=== PATIENT | male | born 1980 | race Caucasian/White ===

== ENCOUNTER → 2016-07-09 | Outpatient (CLI) | payer OTHER ==
--- NOTE | 2016-07-09 09:43 | CT ---
Study: CT of the Head. Indication: DIZZINESS Technique: Axial CT images of the head were acquired without intravenous contrast. Comparison: None. Findings: No CT evidence of acute ischemia, acute hemorrhage, mass, mass effect, midline shift, or extra-axial fluid collection. Ventricles are normal in configuration without hydrocephalus. Brain parenchyma demonstrates a normal appearance for patient age. Paranasal sinuses are adequately aerated. Mastoid air cells are adequately aerated. Osseous structures and soft tissues are unremarkable. Impression: 1. No CT evidence of acute intracranial abnormality. Electronically signed by: Cam Ye MD 07/09/2016 09:41
== END ==
LOC: CT 07:56
PROVIDERS: ATTEND Family Medicine
DX: R42 Dizziness and giddiness (principal)

== ENCOUNTER → 2016-08-19 | Outpatient (CLI) | payer OTHER | LOC: SL 20:30 | PROVIDERS: ATTEND Family Medicine | DX: G47.33 Obstructive sleep apnea (adult) (pediatric) (principal) ==

== ENCOUNTER → 2016-10-13 | Outpatient (CLI) | payer OTHER | LOC: SL 20:24 | PROVIDERS: ATTEND Family Medicine | DX: G47.33 Obstructive sleep apnea (adult) (pediatric) (principal) ==

== ENCOUNTER → 2017-02-10 | Outpatient (CLI) | payer OTHER | END | disposition home or self-care (01) | LOC: GMAH 10:35 | PROVIDERS: ATTEND Family Medicine | DX: E03.9 Hypothyroidism, unspecified (principal) ==

== ENCOUNTER → 2017-05-12 | Outpatient (CLI) | payer OTHER | END | disposition home or self-care (01) | LOC: GMAH 10:50 | PROVIDERS: ATTEND Family Medicine | DX: E03.9 Hypothyroidism, unspecified (principal) ==

== ENCOUNTER → 2017-06-23 | Outpatient (CLI) | payer OTHER | END | disposition home or self-care (01) | LOC: GMAH 16:32 | PROVIDERS: ATTEND Family Medicine | DX: E29.9 Testicular dysfunction, unspecified (principal); E03.9 Hypothyroidism, unspecified ==

== ENCOUNTER → 2017-08-19 | Outpatient (CLI) | payer OTHER | LOC: GMAH 15:22 | PROVIDERS: ATTEND Family Medicine | DX: E03.9 Hypothyroidism, unspecified (principal) ==

== ENCOUNTER → 2018-01-20 | Outpatient (CLI) | payer OTHER ==
--- NOTE | 2018-01-20 16:23 | RAD ---
EXAM DESCRIPTION: Shoulder,Left 2 or More Views CLINICAL HISTORY: PAIN COMPARISON: None Available. TECHNIQUE: Four views of the left shoulder. FINDINGS: There is adequate internal and external rotation. Transscapular Y view appears normally aligned as does the transaxillary view There is no fracture or dislocation. There are no significant degenerative changes observed. AC joint appears intact. No focal bone lesion. IMPRESSION: Negative for fracture or dislocation. Electronically signed by: Brandon Horton MD 01/20/2018 4:21 PM CDT
== END ==
LOC: RAD 07:53
PROVIDERS: ATTEND Orthopaedic Surgery
DX: M25.512 Pain in left shoulder (principal)

== ENCOUNTER → 2018-03-04 | Outpatient (CLI) | payer OTHER ==
--- NOTE | 2018-03-04 09:17 | MRI ---
MRI left shoulder without contrast INDICATION: Shoulder pain rotator cuff tear TECHNIQUE: Noncontrast MR imaging left shoulder FINDINGS: There is a paralabral cyst along the posterior labrum with ill-defined tear extending throughout. The para labral cyst measures 11 x 6 mm. There is also evidence of tear extension throughout the anterior labrum. There is diffuse involvement of the superior labrum with fraying and mild volume loss. No complete detachment. Mild AC joint osteoarthrosis. Moderate subacromial and subdeltoid bursitis. There is edema at the greater tuberosity likely related to insertional partial rotator cuff tear. There is tendinosis with undersurface fraying and interstitial partial tear chronic supraspinatus approaching 50% partial-thickness. There is infraspinatus tendinosis without rupture or retraction Subscapularis is intact. Long head bicep is intact. No muscle atrophy. IMPRESSION: Chronic tendinosis with interstitial tear distal supraspinatus with reactive edema at the greater tuberosity without retraction Diffuse glenoid labral tear nearly circumferential with para labral cyst posteriorly Mild AC joint osteoarthrosis Moderate subacromial and subdeltoid bursitis Electronically signed by: Vazquez Yip MD 03/04/2018 9:16 AM CDT
== END ==
LOC: MRI 07:00
PROVIDERS: ATTEND Orthopaedic Surgery
DX: M75.102 Unspecified rotator cuff tear or rupture of left shoulder, not specified as traumatic (principal); M19.012 Primary osteoarthritis, left shoulder; M75.52 Bursitis of left shoulder

== ENCOUNTER → 2018-04-05 | Outpatient (CLI) | payer OTHER | LOC: GMAH 15:00 | PROVIDERS: ATTEND Family Medicine | DX: E29.9 Testicular dysfunction, unspecified (principal); E03.9 Hypothyroidism, unspecified ==

== ENCOUNTER → 2019-12-22 | Outpatient (CLI) | payer OTHER | LOC: LAB.O 08:57 | PROVIDERS: ATTEND Registered Nurse General Practice | DX: E34.9 Endocrine disorder, unspecified (principal) ==

== ENCOUNTER → 2020-06-26 | Outpatient (CLI) | payer OTHER | LOC: LAB.NP 08:12 | PROVIDERS: ATTEND Nurse Practitioner Family | DX: B71.9 Cestode infection, unspecified (principal) ==

== ENCOUNTER → 2020-08-01 | Outpatient (CLI) | payer OTHER | LOC: YCFC.O 15:33 | PROVIDERS: ATTEND Nurse Practitioner Family | DX: Z20.828 Contact with and (suspected) exposure to other viral communicable diseases (principal) ==

== ENCOUNTER → 2020-08-03 | Outpatient (CLI) | payer OTHER | LOC: YCFC.O 14:37 | PROVIDERS: ATTEND Nurse Practitioner Family | DX: E53.8 Deficiency of other specified B group vitamins (principal); R50.9 Fever, unspecified; M79.10 Myalgia, unspecified site ==

== ENCOUNTER 2020-08-06 09:01 | Emergency (ER) | payer OTHER ==
--- NOTE | 2020-08-06 09:03 | ED.PDOC ---
History of Present Illness - General Stated Complaint: Febrile illness Time Seen by Provider: 08/06/20 09:03 Additional Information: Given prescription for Zithromax 8 days ago, course has been completed now. - History of Present Illness Initial Comments: Patient complains of fever chills and malaise for the last 10 days. He has had a temperature of up to 103 with temperature today 101.7. He complains of prominent chills and malaise. Patient has also had a cough for the last 4 days which is nonproductive. He also complains of shortness of breath. He reports nausea without vomiting. He has had diarrhea 10-12 times In the last 24 hours which is nonbloody. He has had a headache in the occipital area for the last 10 days. He denies syncope. Patient denies weakness or numbness. He complains of vertigo, Which is particularly worsened by some positions.Patient was seen 8 days ago [facility] with a negative Covid test. He was seen in the clinic 5 days ago with a negative Covid test. He was seen here in the emergency room 3 days ago with a negative Covid test. At that time he was found to have low potassium and was given a potassium supplement. Allergies/Adverse Reactions: Allergies NO KNOWN ALLERGY Allergy (Verified 08/06/20 09:10) Home Medications: Ambulatory Orders Amoxicillin & Pot Clavulanate [Augmentin Tab] 875 mg PO BID 7 Days #14 tab 08/06/20 Meclizine HCl [Meclizine 25] 25 mg PO TID PRN 10 Days #30 tab 08/06/20 Review of Systems - Review of Systems Constitutional: States: see HPI EENTM: States: no symptoms reported Respiratory: States: cough, short of breath Genitourinary: States: no symptoms reported Musculoskeletal: States: muscle pain Skin: States: no symptoms reported Neurological: States: see HPI Endocrine: States: no symptoms reported Hematologic/Lymphatic: States: no symptoms reported All other Systems: Reviewed and Negative Past Medical History (General) - Patient Medical History Hx Hypertension: Yes Hx Other - free text: Elevated triglycerides, low testosterone, Fawn's thyroiditis Family Medical History - Family History Mother Family History: Unknown Physical Exam - Physical Exam General Appearance: Alert, Comfortable Eye Exam: bilateral normal Ears, Nose, Throat: hearing grossly normal, normal ENT inspection, normal pharynx, other - Tympanic membranes normal bilaterally Neck: non-tender, full range of motion, supple Respiratory: lungs clear Cardiovascular/Chest: normal peripheral pulses Gastrointestinal/Abdominal: normal bowel sounds, non tender, soft Back Exam: normal inspection, no CVA tenderness Extremity: normal range of motion, non-tender 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 No past pointing. Skin Exam: normal color Lymphatic: no adenopathy Progress - Progress Progress: 08/06/20 11:07 Medical decision making: Previously healthy 40-year-old male with 10-day history of fever chills malaise cough diarrhea and other neurological symptoms suggestive of a COVID-19 infection. Patient's previously been treated with Zithromax without relief of symptoms. Due to prolonged symptoms patient will be placed on a prescription of amoxicillin in case there is a secondary infection although this is admittedly not very likely. Patient does not have any dyspnea or hypoxemia to require admission at this time. He is not a high risk patient who would need monoclonal antibody treatment. He is suitable for outpatient treatment follow-up if he should have worsening symptoms. 08/06/20 11:09 Patient also has subjective complaints of vertigo But does not have any objective findings such as ataxia or past-pointing. He will be treated symptom atically with meclizine as needed. - Results/Orders Results/Orders: Covid 19 rapid test positive. Influenza a and B test negative. XAM DESCRIPTION: Chest,1 View CLINICAL HISTORY: 40 years Male, Cough and fever COMPARISON: None. TECHNIQUE: AP portable chest. FINDINGS: Heart size is normal with normal pulmonary vascularity. Bilateral pulmonary infiltrates are seen. Infiltrate in the right perihilar and right lower lobe regions. Infiltrate in the left upper lobe and left pericardiac regions. No pulmonary mass or worrisome nodule. No pneumothorax or pleural effusion. Bones are unremarkable. IMPRESSION: Bilateral pulmonary infiltrates consistent with pneumonia. 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 Laboratory Results - last 24 hr 08/06/20 08/06/20 09:20 09:20 WBC 4.1 L RBC 4.95 Hgb 15.9 Hct 46.6 MCV 94.0 MCH 32.1 H MCHC 34.1 RDW 13.8 Plt Count 155 MPV 8.6 Absolute Neuts (auto) 3.00 Absolute Lymphs (auto) 0.60 L Absolute Monos (auto) 0.40 Absolute Eos (auto) 0.00 Absolute Basos (auto) 0.00 Neutrophils % 73.5 Lymphocytes % 15.5 L Monocytes % 9.5 H Eosinophils % 1.0 Basophils % 0.5 Sodium 136 Potassium 3.6 Chloride 99 L Carbon Dioxide 28 Anion Gap 12.6 BUN 13 Creatinine 1.58 H BUN/Creatinine Ratio 8.2 L Random Glucose 93 Serum Osmolality 271.8 L Calcium 8.7 Total Bilirubin 0.8 AST 41 ALT 43 Alkaline Phosphatase 34 L Serum Total Protein 7.4 Albumin 4.3 Globulin 3.1 Albumin/Globulin Ratio 1.4 Vital Signs - 24 hr 08/06/20 08/06/20 08/06/20 09:05 09:22 10:01 Temperature 97.2 F L 98.4 F Pulse Rate [ 79 79 81 brachial] Respiratory 18 18 18 Rate Blood Pressure 162/81 131/88 [Left Arm] O2 Sat by Pulse 96 98 Oximetry 08/06/20 10:25 Temperature 99.4 F Pulse Rate [ 74 brachial] Respiratory 18 Rate Blood Pressure 131/88 [Left Arm] O2 Sat by Pulse 96 Oximetry Departure - Departure Clinical Impression: COVID-19, Pneumonia, Vertigo Disposition: Discharge to Home or Self Care Condition: Excellent Departure Forms: ED Discharge - Pt. Copy, Patient Portal Self Enrollment Instructions: Vertigo (a Type of Dizziness) (DC), Pneumonia, Adult (DC), Coronavirus Disease 2019 (COVID-19) (DC) Diet: regular diet Referrals: VINCENT ESPINO NP [Primary Care Provider] - 1-2 Weeks Prescriptions: Amoxicillin & Pot Clavulanate [Augmentin Tab] 875 mg PO BID 7 Days #14 tab Meclizine HCl [Meclizine 25] 25 mg PO TID PRN 10 Days #30 tab PRN Reason: Dizziness Home Medications: Ambulatory Orders Amoxicillin & Pot Clavulanate [Augmentin Tab] 875 mg PO BID 7 Days #14 tab 08/06/20 Meclizine HCl [Meclizine 25] 25 mg PO TID PRN 10 Days #30 tab 08/06/20 Additional Instructions: You have COVID-19 with pneumonia. You should remain home under isolation until you are free of symptoms for at least 4 days. Return to the emergency room if you are having worsening shortness of breath And feel like you cannot breathe.
[2020-08-06] MEDS ORDERED: MECLIZINE HCL 12.5 MG TAB PO ONE (09:25)
[2020-08-06] MEDS ORDERED: MECLIZINE HCL 12.5 MG TAB ONE (09:37)
--- NOTE | 2020-08-06 09:41 | RAD ---
EXAM DESCRIPTION: Chest,1 View CLINICAL HISTORY: 40 years Male, Cough and fever COMPARISON: None. TECHNIQUE: AP portable chest. FINDINGS: Heart size is normal with normal pulmonary vascularity. Bilateral pulmonary infiltrates are seen. Infiltrate in the right perihilar and right lower lobe regions. Infiltrate in the left upper lobe and left pericardiac regions. No pulmonary mass or worrisome nodule. No pneumothorax or pleural effusion. Bones are unremarkable. IMPRESSION: Bilateral pulmonary infiltrates consistent with pneumonia. 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
[2020-08-06 10:31] VITALS: BP 131/88
[2020-08-06 10:33] VITALS: TEMP 99.4; O2SAT 96
== END 2020-08-06 10:25 | disposition home or self-care (01) ==
LOC: ER 09:01
DX: U07.1 COVID-19 (principal); J12.82 Pneumonia due to coronavirus disease 2019; R42 Dizziness and giddiness; I10 Essential (primary) hypertension; E06.3 Autoimmune thyroiditis